=== PATIENT | female | born 1970 | race Caucasian/White ===

== ENCOUNTER 2018-07-18 19:01 | Emergency (ER) | payer BC, MEDICAID ==
[2018-07-18] MEDS: DEXAMETHASONE 10 MG/ML 1 ML INJ IM (20:03)
[2018-07-18] MEDS: METHOCARBAMOL 750 MG TAB PO (20:04)
[2018-07-18] MEDS: KETOROLAC 30 MG INJ IM (20:04)
== END 2018-07-18 22:02 | disposition home or self-care (01) ==
LOC: FTE 19:01
DX: M54.2 Cervicalgia (principal)
CPT/HCPCS: 81025; 96372; 99284-25